=== PATIENT | female | born 1980 | race Caucasian/White ===

== ENCOUNTER 2023-02-26 23:33 | Inpatient (IN) | payer OTHER ==
[~2023-02-26] VITALS: Ht 157.5 cm; Wt 57.2 kg
[~2023-02-26 23:33] MED LIST: FOLIC ACID0.4 MG PO; IRON1TAB4 PO; SINGULAIR10 MG PO
--- NOTE | 2023-02-26 23:54 | NUR ---
PTE ALERTA Y ORIENTADA X3 EN COMPANIA DE FAMILIAR. PTE REFIERE DOLOR PELVICO DESDE HACE 5 [place]. PTE REFIERE SALONI TOMADO IBUPROFEN A LAS 5:00PM.
--- NOTE | 2023-02-27 00:54 | NUR ---
SE REALIZAN MUESTRAS DE SOLOMON A PACIENTE POR ORDEN MEDICA, SE ORIENTA A PACIENTE SOBRE USO Y EFECTOS DE LOS MEDICAMENTOS A SER ADMINISTRADOS. PACIENTE AL MOMENTO SE MANTIENE EN ESPERA DE REALIZAR ESTUDIOS.
== END 2023-03-04 10:36 | disposition home or self-care (01) | DRG 743 ==
LOC: ER 23:33 → OB/GYN 02-27 06:15
PROVIDERS: ADMIT Obstetrics & Gynecology Maternal & Fetal Medicine; ATTEND Obstetrics & Gynecology Maternal & Fetal Medicine
PROC: 0UT90ZL Resection of Uterus, Supracervical, Open Approach (ICD-10-PCS; principal; 2023-02-27)
DX: D25.2 Subserosal leiomyoma of uterus (principal); N80.03 Adenomyosis of the uterus; Z20.822 Contact with and (suspected) exposure to COVID-19
CPT/HCPCS: 72195